=== PATIENT | female | born 1970 | race American Indian/Alaskan Native ===

== ENCOUNTER 2018-05-03 21:35 | Observation (INO) | payer BC ==
[2018-05-03 21:48] VITALS: BMI 43.0
[2018-05-03 22:14] LABS: BASO # 0.02 K/mm3 (0.0-2.0); BASO % 0.3 % (0.0-3.0); EOS # 0.1 (0.0-0.7); EOS % 1.8 % (1.5-5.0); GRAN # 4.01 (1.4-6.5); GRAN % 55.2 % (50.0-68.0); HEMOGLOBIN 12.6 g/dL (12.0-16.0); LYMPH # 2.6 (1.2-3.4); LYMPH % 36.4 % (22.0-35.0); MEAN CELL VOLUME 91.3 fl (80.0-105.0); MEAN CORPUSCULAR HEMOGLOBIN 29.6 pg (25.0-35.0); MEAN CORPUSCULAR HGB CONC 32.4 g/dl (31.0-37.0); MEAN PLATELET VOLUME 9.3 fl (7.0-11.0); MONO # 0.5 (0.1-0.6); MONO % 6.3 % (1.0-6.0); RBC 4.26 10^6/uL (3.5-6.1); WHITE BLOOD COUNT 7.3 10^3/uL (4.5-11.0)
[2018-05-03 22:35] LABS: TROPONIN I < 0.01 ng/mL
--- NOTE | 2018-05-03 22:36 | ED PDOC ---
Arrival/HPI - General Chief Complaint: Upper Extremity Problem/Injury Historian: Patient - History of Present Illness Narrative History of Present Illness (Text): 05/03/18 22:30 48 year old female, with no significant past medical history, presents to the emergency department with tingling on left arm and left face, for 1 week. Patient reports seeing a neurologist after her PCP referred her and was prescribed Gabapentin, with no relief of symptoms. Patient states no imaging was done and reports having a script from the neurologist for MRI. Patient denies any weakness, drooling, facial asymmetry, difficulty walking, shortness of breath, nausea, vomiting, abdominal pain, dizziness, vision changes, or any other complaints. PMD: Dr. Power Santoyo Time/Duration: 1 week Symptom Onset: Gradual Symptom Course: Unchanged Activities at Onset: Rest Past Medical History - Provider Review Nursing Documentation Reviewed: Yes - Travel History Have you recently traveled outside [place] w/in the past 3 mons?: No - Infectious Disease Hx of Infectious Diseases: None - Cardiac Hx Cardiac Disorders: No - Pulmonary Hx Asthma: Yes - Psychiatric Hx Substance Use: No - Surgical History Hx Section: Yes (x2) Hx Hysterectomy: Yes - Anesthesia Hx Anesthesia: No Family/Social History - Physician Review Nursing Documentation Reviewed: Yes Family/Social History: No Known Family HX Smoking Status: Never Smoked Hx Alcohol Use: No Hx Substance Use: No Allergies/Home Meds Allergies/Adverse Reactions: Allergies iodine Allergy (Verified 05/03/18 22:03) RASH Penicillins Allergy (Verified 05/03/18 22:03) RASH shellfish derived Allergy (Verified 05/03/18 22:03) RASH latex Allergy (Severe, Uncoded 05/04/18 12:04) ANAPHYLAXIS tuna Allergy (Uncoded 05/04/18 12:04) RASH Review of Systems - Physician Review All systems were reviewed & negative as marked: Yes - Review of Systems Constitutional: absent: Fevers Respiratory: absent: SOB Gastrointestinal: absent: Abdominal Pain, Nausea, Vomiting Neurological: Other (numbness and tingling in left arm, and left side of lip). absent: Dizziness, Focal Weakness, Gait Changes, Speech Changes, Facial Droop, Disequilibrium Physical Exam Vital Signs Reviewed: Yes Vital Signs Temp Pulse Resp BP Pulse Ox 05/03/18 21:51 98.1 F 77 18 144/85 97 Temperature: Afebrile Blood Pressure: Normal Pulse: Regular Respiratory Rate: Normal Appearance: Positive for: Well-Appearing, Non-Toxic, Comfortable Pain Distress: None Mental Status: Positive for: Alert and Oriented X 3 - Systems Exam Head: Present: Atraumatic, Normocephalic Pupils: Present: PERRL Extroacular Muscles: Present: EOMI Conjunctiva: Present: Normal Mouth: Present: Moist Mucous Membranes Neck: Present: Normal Range of Motion Respiratory/Chest: Present: Clear to Auscultation, Good Air Exchange. No: Respiratory Distress, Accessory Muscle Use Cardiovascular: Present: Regular Rate and Rhythm, Normal S1, S2. No: Murmurs Abdomen: No: Tenderness, Distention, Peritoneal Signs Back: Present: Normal Inspection Upper Extremity: Present: Normal Inspection. No: Cyanosis, Edema Lower Extremity: Present: Normal Inspection. No: Edema Neurological: Present: GCS=15, CN II-XII Intact, Speech Normal, Motor Func Grossly Intact (motor function 5/5 in all extremities), Gait Normal (able to walk in tandem), Other (Passed finger to nose test; no cerbral ataxia; no pronator drift; negative romberg) Skin: Present: Warm, Dry, Normal Color. No: Rashes Psychiatric: Present: Alert, Oriented x 3, Normal Insight, Normal Concentration Medical Decision Making ED Course and Treatment: 05/03/18 22:42 Impression: 48 year old female presents with left arm and some left facial numbness Differential Diagnoses Include But Are Not Limited To: --TIA/CVA Plan: -- CT Head -- Labs -- EKG -- Chest X-ray -- Urinalysis -- Reassess and disposition Prior Visits: No previous visits. Progress Notes: 05/03/18 23:22 Labs reviewed and unremarkable. No evidence of focal consolidation noted on CXR. Spoke to medical assistant secretary. Call placed to Dr. Padron(house staff) 05/03/18 23:[address] Padron who accepts patient onto his service. Patient off to CT scan. - Lab Interpretations Lab Results: 05/03/18 22:08 05/03/18 22:08 Lab Results 05/03/18 22:08: Sodium Pending, Potassium 3.9, Chloride Pending, Carbon Dioxide Pending, Anion Gap Pending, BUN Pending, Creatinine Pending, Est GFR ( Amer) Pending, Est GFR (Non-Af Amer) Pending, Random Glucose Pending, Calcium Pending, Magnesium Pending, Total Bilirubin Pending, AST Pending, ALT Pending, Alkaline Phosphatase Pending, Troponin I Pending, Total Protein Pending, Albumin Pending, Globulin Pending, Albumin/Globulin Ratio Pending 05/03/18 22:08: WBC 7.3, RBC 4.26, Hgb 12.6, Hct 38.9, MCV 91.3, MCH 29.6, MCHC 32.4, RDW 14.0, Plt Count 357, MPV 9.3, Gran % 55.2, Lymph % (Auto) 36.4 H, [place] % (Auto) 6.3 H, Eos % (Auto) 1.8, Baso % (Auto) 0.3, Gran # 4.01, Lymph # (Auto) 2.6, [place] # (Auto) 0.5, Eos # (Auto) 0.1, Baso # (Auto) 0.02 I have reviewed the lab results: Yes - RAD Interpretation Narrative RAD Interpretations (Text): 05/04/18 02:38 CT Head without Intravenous Contrast. CLINICAL HISTORY: Headache TECHNIQUE: Axial computed tomography images of the head/brain without intravenous contrast. 874.54 mGy-cm COMPARISON: None provided. FINDINGS: BRAIN No acute intraparenchymal hemorrhage. No mass lesion. No CT evidence for acute territorial infarct. No midline shift or extra-axial collections. VENTRICLES: No hydrocephalus. ORBITS: The orbits are unremarkable. SINUSES AND MASTOIDS: The paranasal sinuses and mastoid air cells are clear. BONES: No fracture. SOFT TISSUES: Unremarkable. IMPRESSION: No acute intracranial abnormality. Radiology Orders: 05/03/18 22:04 CHEST PORTABLE [RAD] Stat Veterinary Medicine Teacher: Radiologist - EKG Interpretation EKG Interpretation (Text): 05/04/18 01:09 EKG: Ordered, reviewed, and independently interpreted the EKG. Rate : 71 BPM Rhythm : NSR Interpretation : No ST-segment elevations, no T-wave inversions. Comparison : No previous EKG for comparison. Interpreted by ED Physician: Yes Type: 12 lead EKG Comparison: No previous EKG avail. - Scribe Statement The provider has reviewed the documentation as recorded by the Alvaro Lerma Provider Scribe Attestation: All medical record entries made by the Justinaibe were at my direction and personally dictated by me. I have reviewed the chart and agree that the record accurately reflects my personal performance of the history, physical exam, medical decision making, and the department course for this patient. I have also personally directed, reviewed, and agree with the discharge instructions and disposition. Disposition/Present on Arrival - Present on Arrival Any Indicators Present on Arrival: No History of DVT/PE: No History of Uncontrolled Diabetes: No Urinary Catheter: No History of Decub. Ulcer: No History Surgical Site Infection Following: None - Disposition Have Diagnosis and Disposition been Completed?: Yes Diagnosis: Arm paresthesia, left Disposition: HOSPITALIZED Disposition Time: 23:21 Patient Plan: Observation Condition: STABLE
[2018-05-03 22:49] LABS: ALB/GLOB RATIO 1.2 (1.1-1.8); ALT/SGPT 15 U/L (7-56); AST/SGOT 19 U/L (14-36); BLOOD UREA NITROGEN 12 mg/dL (7-21); CALCIUM 9.3 mg/dL (8.4-10.5); GFR NON-AFRICAN AMERICAN > 60
[2018-05-03 23:26] LABS: PH,URINE 8.5 (4.7-8.0); URINE BILIRUBIN NEGATIVE (NEGATIVE); URINE BLOOD NEGATIVE (NEGATIVE); URINE GLUCOSE (UA) NEGATIVE (NEGATIVE); URINE LEUKOCYTE ESTERASE NEGATIVE Leu/uL (NEGATIVE); URINE PROTEIN NEGATIVE mg/dL (<30 mg/dL); URINE UROBILINOGEN 0.2 E.U./dL (<1 E.U./dL)
[2018-05-03 23:28] LABS: URINE APPEARANCE CLEAR (CLEAR); URINE COLOR STRAW (YELLOW)
[2018-05-04] MEDS ORDERED: Albuterol-Ipratrop 3 mg / 0.5 (3 ml) UD IH PRN (01:36)
--- NOTE | 2018-05-04 03:49 | CP.PCM.HP ---
<JessicaAndrea - Last Filed: 05/04/18 03:52> History of Present Illness - History of Present Illness History of Present Illness: Andrea Lopez DO PGY1. H&P for Hospitalist Service C.C: right upper limb and facial numbness/tingling 48 y/o female with PMH of asthma presents to the ED with 5 days h/o left arm numbness/tingling with the entire face as well. Symptoms started suddenly without proceeding infection, unchanged in severity, intermittent, unrelated to positioning, no alleviating or worsening factors associated. Patient contacted her doctor via phone who prescribed Gabapentin for her that failed to relieve her symptoms. She denied focal neurological symptoms, visual changes, muscle weakness, facial droop, facial pain, rash. She denied any neurological disease, Chung's palsy, vertebral arthritis or radiculopathy symtoms in the past. Patient denied CP, SOB, palpitations, leg swelling, headache, rashes, blood per rectum, urinary symptoms, fever, chills 12 points ROS reviewed with pertinent positives as above PMH: asthma PSH: 2 C-sections, hysterectomy Meds: gabapentin ALL: PCN, iodine, shelfish Soc Hx:no alcohol, smoking, drug use Fam Hx: non contributory Present on Admission - Present on Admission Any Indicators Present on Admission: No Past Patient History - Infectious Disease Hx of Infectious Diseases: None - Past Social History Smoking Status: Never Smoked - CARDIAC Hx Cardiac Disorders: No - PULMONARY Hx Asthma: Yes - MUSCULOSKELETAL/RHEUMATOLOGICAL Hx Falls: No - PSYCHIATRIC Hx Substance Use: No - SURGICAL HISTORY Hx Section: Yes (x2) Hx Hysterectomy: Yes - ANESTHESIA Hx Anesthesia: No Meds Allergies/Adverse Reactions: Allergies Allergy/AdvReac Type Severity Reaction Status Date / Time iodine Allergy RASH Verified 05/03/18 22:03 Penicillins Allergy RASH Verified 05/03/18 22:03 shellfish derived Allergy RASH Verified 05/03/18 22:03 Physical Exam - Constitutional Appears: Well, No Acute Distress - Head Exam Head Exam: ATRAUMATIC, NORMAL INSPECTION, NORMOCEPHALIC - Eye Exam Eye Exam: EOMI, Normal appearance, PERRL Pupil Exam: NORMAL ACCOMODATION, PERRL - ENT Exam ENT Exam: Mucous Membranes Moist, Normal Exam - Neck Exam Neck exam: Positive for: Normal Inspection - Respiratory Exam Respiratory Exam: Clear to Auscultation Bilateral, NORMAL BREATHING PATTERN - Cardiovascular Exam Cardiovascular Exam: REGULAR RHYTHM - GI/Abdominal Exam GI & Abdominal Exam: Normal Bowel Sounds, Soft. absent: Tenderness - Back Exam Back exam: NORMAL INSPECTION. absent: muscle spasm, paraspinal tenderness, tenderness - Neurological Exam Neurological exam: Alert, CN II-XII Intact, Normal Gait, Oriented x3, Reflexes Normal - Expanded Neurological Exam Expanded Cranial nerves: EOM's Intact: Normal, Facial Palsey w/Forehead Movement: Normal, Facial Palsey w/o Forehead Movement: Normal, Facial Sensation: Normal, Tongue Deviation: Normal Ataxia: No Sensory exam: Lower Extremity Light Touch: Normal, Lower Extremity Temperature: Normal, Upper Extremity Light Touch: Normal, Upper Extremity Pin Prick: Normal, Upper Extremity Temperature: Normal Neuro motor strength exam: Left Upper Extremity: 5, Right Upper Extremity: 5, Left Lower Extremity: 5, Right Lower Extremity: 5 - Psychiatric Exam Psychiatric exam: Normal Affect, Normal Mood - Skin Skin Exam: Dry, Intact, Normal Color, Warm Results - Vital Signs Recent Vital Signs: Last Vital Signs Temp 98.1 F 05/03/18 21:51 Pulse 77 05/03/18 21:51 Resp 19 05/04/18 02:22 BP 144/85 05/03/18 21:51 Pulse Ox 97 05/03/18 21:51 - Labs Result Diagrams: 05/03/18 22:08 05/03/18 22:08 Labs: Laboratory Results - last 24 hr 05/03/18 05/03/18 05/03/18 22:08 22:08 22:08 WBC 7.3 RBC 4.26 Hgb 12.6 Hct 38.9 MCV 91.3 MCH 29.6 MCHC 32.4 RDW 14.0 Plt Count 357 MPV 9.3 Gran % 55.2 Lymph % (Auto) 36.4 H [place] % (Auto) 6.3 H Eos % (Auto) 1.8 Baso % (Auto) 0.3 Gran # 4.01 Lymph # (Auto) 2.6 [place] # (Auto) 0.5 Eos # (Auto) 0.1 Baso # (Auto) 0.02 Sodium 142 Potassium 3.9 Chloride 110 H Carbon Dioxide 24 Anion Gap 12 BUN 12 Creatinine 0.7 Est GFR ( Amer) > 60 Est GFR (Non-Af Amer) > 60 Random Glucose 116 H Calcium 9.3 Magnesium 2.0 Total Bilirubin 0.3 AST 19 ALT 15 Alkaline Phosphatase 90 Troponin I < 0.01 Total Protein 7.2 Albumin 4.0 Globulin 3.2 Albumin/Globulin Ratio 1.2 Triglycerides 209 H Cholesterol 200 LDL Cholesterol Direct 127 HDL Cholesterol 37 TSH 3rd Generation Urine Color Urine Appearance Urine pH Ur Specific [place] Urine Protein Urine Glucose (UA) Urine Ketones Urine Blood Urine Nitrate Urine Bilirubin Urine Urobilinogen Ur Leukocyte Esterase 05/03/18 05/03/18 22:08 23:20 WBC RBC Hgb Hct MCV MCH MCHC RDW Plt Count MPV Gran % Lymph % (Auto) [place] % (Auto) Eos % (Auto) Baso % (Auto) Gran # Lymph # (Auto) [place] # (Auto) Eos # (Auto) Baso # (Auto) Sodium Potassium Chloride Carbon Dioxide Anion Gap BUN Creatinine Est GFR ( Amer) Est GFR (Non-Af Amer) Random Glucose Calcium Magnesium Total Bilirubin AST ALT Alkaline Phosphatase Troponin I Total Protein Albumin Globulin Albumin/Globulin Ratio Triglycerides Cholesterol LDL Cholesterol Direct HDL Cholesterol TSH 3rd Generation 2.73 Urine Color Straw Urine Appearance Clear Urine pH 8.5 Ur Specific [place] 1.020 Urine Protein Negative Urine Glucose (UA) Negative Urine Ketones Negative Urine Blood Negative Urine Nitrate Negative Urine Bilirubin Negative Urine Urobilinogen 0.2 Ur Leukocyte Esterase Negative Assessment & Plan - Assessment and Plan (Free Text) Assessment: 48 y/o female with PMH of asthma presents to the ED with 5 days h/o left arm numbness/tingling with the entire face. Labs are normal, CT head, cervical/thoracic spine ordered. Patient is admitted to med/surg for observation Plan: Left upper extremity and facial numbness/tingling: -AAOx3, No focal neurologic signs on exam -CT head; read pending -CT cervical/thoracic spine ordered -B12, folate, TSH ordered -neuro check -fall, seizure precaution -neurology consulted, Dr Loco H/O asthma: -intermittent, no active symptoms -O2 supp prn -doneb prn -maintain O2 sat >90% Morbid obesity: -patient counseling for weight reduction -HGB A1C ordered -lipid panel ordered Prophylaxis: -GI ppx: protonix -DVT ppx: SCD -Heart healthy diet Dispo: Patient is admitted to med/surg for observation Case reviewed and palndiscussed with Dr Vito Lopez, DO, PGY1 <Ehsan Padron - Last Filed: 05/04/18 05:57> Results - Vital Signs Recent Vital Signs: Last Vital Signs Temp 98.1 F 05/03/18 21:51 Pulse 77 05/03/18 21:51 Resp 19 05/04/18 02:22 BP 144/85 05/03/18 21:51 Pulse Ox 97 05/03/18 21:51 - Labs Result Diagrams: 05/03/18 22:08 05/04/18 04:25 Labs: Laboratory Results - last 24 hr 05/03/18 05/03/18 05/03/18 22:08 22:08 22:08 WBC 7.3 RBC 4.26 Hgb 12.6 Hct 38.9 MCV 91.3 MCH 29.6 MCHC 32.4 RDW 14.0 Plt Count 357 MPV 9.3 Gran % 55.2 Lymph % (Auto) 36.4 H [place] % (Auto) 6.3 H Eos % (Auto) 1.8 Baso % (Auto) 0.3 Gran # 4.01 Lymph # (Auto) 2.6 [place] # (Auto) 0.5 Eos # (Auto) 0.1 Baso # (Auto) 0.02 Sodium 142 Potassium 3.9 Chloride 110 H Carbon Dioxide 24 Anion Gap 12 BUN 12 Creatinine 0.7 Est GFR ( Amer) > 60 Est GFR (Non-Af Amer) > 60 Random Glucose 116 H Calcium 9.3 Phosphorus Magnesium 2.0 Total Bilirubin 0.3 AST 19 ALT 15 Alkaline Phosphatase 90 Troponin I < 0.01 Total Protein 7.2 Albumin 4.0 Globulin 3.2 Albumin/Globulin Ratio 1.2 Triglycerides 209 H Cholesterol 200 LDL Cholesterol Direct 127 HDL Cholesterol 37 TSH 3rd Generation Urine Color Urine Appearance Urine pH Ur Specific [place] Urine Protein Urine Glucose (UA) Urine Ketones Urine Blood Urine Nitrate Urine Bilirubin Urine Urobilinogen Ur Leukocyte Esterase 05/03/18 05/03/18 05/04/18 22:08 23:20 04:25 WBC RBC Hgb Hct MCV MCH MCHC RDW Plt Count MPV Gran % Lymph % (Auto) [place] % (Auto) Eos % (Auto) Baso % (Auto) Gran # Lymph # (Auto) [place] # (Auto) Eos # (Auto) Baso # (Auto) Sodium 139 Potassium 4.0 Chloride 110 H Carbon Dioxide 21 Anion Gap 12 BUN 13 Creatinine 0.7 Est GFR ( Amer) > 60 Est GFR (Non-Af Amer) > 60 Random Glucose 101 Calcium 8.9 Phosphorus 4.1 Magnesium 2.0 Total Bilirubin 0.3 AST 15 ALT 15 Alkaline Phosphatase 89 Troponin I < 0.01 Total Protein 7.0 Albumin 3.8 Globulin 3.1 Albumin/Globulin Ratio 1.2 Triglycerides Cholesterol LDL Cholesterol Direct HDL Cholesterol TSH 3rd Generation 2.73 Urine Color Straw Urine Appearance Clear Urine pH 8.5 Ur Specific [place] 1.020 Urine Protein Negative Urine Glucose (UA) Negative Urine Ketones Negative Urine Blood Negative Urine Nitrate Negative Urine Bilirubin Negative Urine Urobilinogen 0.2 Ur Leukocyte Esterase Negative Attending/Attestation - Attestation I have personally seen and examined this patient.: Yes I have fully participated in the care of the patient.: Yes I have reviewed all pertinent clinical information: Yes Notes (Text): 05/04/18 05:51 Patient was seen with resident physician when she was in CODE room in the ER. 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
[2018-05-04 05:04] LABS: TROPONIN I < 0.01 ng/mL
[2018-05-04 05:18] LABS: ALB/GLOB RATIO 1.2 (1.1-1.8); ALBUMIN 3.8 g/dL (3.0-4.8); ALT/SGPT 15 U/L (7-56); AST/SGOT 15 U/L (14-36); BLOOD UREA NITROGEN 13 mg/dL (7-21); CALCIUM 8.9 mg/dL (8.4-10.5); GFR NON-AFRICAN AMERICAN > 60
[2018-05-04] MEDS: Pantoprazole 40 mg EC Tab PO SCH (06:21)
--- NOTE | 2018-05-04 07:02 | CT ---
Date of service: 05/03/2018 PROCEDURE: CT HEAD WITHOUT CONTRAST. HISTORY: headache COMPARISON: None available. TECHNIQUE: Axial computed tomography images were obtained through the head/brain without intravenous contrast. Radiation dose: Total exam DLP = 874.54 mGy-cm. This CT exam was performed using one or more of the following dose reduction techniques: Automated exposure control, adjustment of the mA and/or kV according to patient size, and/or use of iterative reconstruction technique. FINDINGS: HEMORRHAGE: No intracranial hemorrhage. BRAIN: No mass effect or edema. No atrophy or chronic microvascular ischemic changes. VENTRICLES: Unremarkable. No hydrocephalus. CALVARIUM: Unremarkable. PARANASAL SINUSES: Unremarkable as visualized. No significant inflammatory changes. MASTOID AIR CELLS: Unremarkable as visualized. No inflammatory changes. OTHER FINDINGS: None. IMPRESSION: No evidence of acute intracranial hemorrhage intracranial collection mass effect or midline shift. Preliminary report was submitted by [facility] Radiology contains concordant findings.
--- NOTE | 2018-05-04 09:10 | RAD ---
Date of service: 05/03/2018 HISTORY: general screen COMPARISON: No prior. FINDINGS: LUNGS: No active pulmonary disease. PLEURA: No significant pleural effusion identified, no pneumothorax apparent. CARDIOVASCULAR: No aortic atherosclerotic calcification present. Normal cardiac size. No pulmonary vascular congestion. OSSEOUS STRUCTURES: No significant abnormalities. VISUALIZED UPPER ABDOMEN: Normal. OTHER FINDINGS: None. IMPRESSION: No active disease.
--- NOTE | 2018-05-04 09:23 | CP.PCM.CON ---
<Driss Duarte - Last Filed: 05/04/18 15:38> History of Present Illness - History of Present Illness History of Present Illness: Neurology Consult note for Dr. 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 states she noticed this sensation when she woke up Monday morning. Due to concern she was having a stroke that day, she went to her PMD where she was prescribed gabapentin 100 mg qD. Patient states this sensation waxed and waned and by Monday she was concerned so she went to her Neurologist Dr. Naqvi for further evaluation. Patient was given a script for brain MRI however patient states due to insurance issues and authorization she was unable to get the MRI. With more concerning thoughts of stroke, patient became nervous and anxious and states this exacerbated the tingling sensation she was having. As per patient the numbness and tingling radiates up and down her left arm, face and across her back on the scapular region. Patient states that overnight she noticed this sensation also traveling down her left leg. She denies previous sensation such as this in the past, shortness of breath, fevers, chills, nausea, vomiting, diarrhea, abdominal pain, vision changes, chest pain, shortness of breath. PMD: Dr. Crockett Neurologist Dr. Naqvi PMHx: Chronic migraines, Coma after where she came into contact with penicillin and latex , Asthma (rarely uses inhaler) Medications: Topomax, Gabapentin Allergies: iodine, penicillins, shellfish, latex (carries epi-pen) Social history: denies tobacco, alcohol, illicit drug use Family history: DM, HTN, breast ca Review of Systems - Constitutional Constitutional: absent: Chills - EENT Eyes: absent: Change in Vision, Diplopia - Cardiovascular Cardiovascular: absent: Chest Pain, Dyspnea - Respiratory Respiratory: absent: Cough, Dyspnea - Gastrointestinal Gastrointestinal: absent: Abdominal Pain - Genitourinary Genitourinary: absent: Dysuria - Musculoskeletal Musculoskeletal: absent: Back Pain - Neurological Neurological: Paresthesias (left sided). absent: Confusion, Dizziness, Focal Weakness, Frequent Falls, Lack of Coordination, Loss of Vision - Psychiatric Psychiatric: absent: Anxiety Past Patient History - Infectious Disease Hx of Infectious Diseases: None - Past Social History Smoking Status: Never Smoked - CARDIAC Hx Cardiac Disorders: No - PULMONARY Hx Asthma: Yes - MUSCULOSKELETAL/RHEUMATOLOGICAL Hx Falls: No - PSYCHIATRIC Hx Substance Use: No - SURGICAL HISTORY Hx Section: Yes (x2) Hx Hysterectomy: Yes - ANESTHESIA Hx Anesthesia: No Meds Allergies/Adverse Reactions: Allergies Allergy/AdvReac Type Severity Reaction Status Date / Time iodine Allergy RASH Verified 05/03/18 22:03 Penicillins Allergy RASH Verified 05/03/18 22:03 shellfish derived Allergy RASH Verified 05/03/18 22:03 latex Allergy Severe ANAPHYLAXIS Uncoded 05/04/18 12:04 tuna Allergy RASH Uncoded 05/04/18 12:04 - Medications Medications: Current Medications Albuterol/Ipratropium (Duoneb 3 Mg/0.5 Mg (3 Ml) Ud) 3 ml IH Q2H PRN PRN Reason: Shortness of Breath Gabapentin (Neurontin) 300 mg PO STAT JEAN PAUL; Protocol Pantoprazole Sodium (Protonix Ec Tab) 40 mg PO 0600 [facility] Last Admin: 05/04/18 06:21 Dose: 40 mg Physical Exam - Head Exam Head Exam: ATRAUMATIC, NORMAL INSPECTION, NORMOCEPHALIC - Eye Exam Eye Exam: EOMI, Normal appearance - ENT Exam ENT Exam: Mucous Membranes Moist, Normal Exam - Neck Exam Neck exam: Positive for: Normal Inspection - Respiratory Exam Respiratory Exam: Clear to Auscultation Bilateral, NORMAL BREATHING PATTERN - Cardiovascular Exam Cardiovascular Exam: REGULAR RHYTHM, +S1, +S2 - GI/Abdominal Exam GI & Abdominal Exam: Normal Bowel Sounds, Soft - Extremities Exam Extremities exam: Positive for: normal inspection - Back Exam Back exam: NORMAL INSPECTION - Neurological Exam Neurological exam: Alert, CN II-XII Intact, Oriented x3 - Psychiatric Exam Psychiatric exam: Normal Affect, Normal Mood - Skin Skin Exam: Normal Color, Warm Results - Vital Signs Recent Vital Signs: Last Vital Signs Temp 98 F 05/04/18 07:45 Pulse 69 05/04/18 07:45 Resp 20 05/04/18 07:45 BP 119/76 05/04/18 07:45 Pulse Ox 98 05/04/18 07:45 - Labs Result Diagrams: 05/03/18 22:08 05/04/18 04:25 Labs: Laboratory Results - last 24 hr 05/03/18 05/03/18 05/03/18 22:08 22:08 22:08 WBC 7.3 RBC 4.26 Hgb 12.6 Hct 38.9 MCV 91.3 MCH 29.6 MCHC 32.4 RDW 14.0 Plt Count 357 MPV 9.3 Gran % 55.2 Lymph % (Auto) 36.4 H Otero % (Auto) 6.3 H Eos % (Auto) 1.8 Baso % (Auto) 0.3 Gran # 4.01 Lymph # (Auto) 2.6 Otero # (Auto) 0.5 Eos # (Auto) 0.1 Baso # (Auto) 0.02 Sodium 142 Potassium 3.9 Chloride 110 H Carbon Dioxide 24 Anion Gap 12 BUN 12 Creatinine 0.7 Est GFR ( Amer) > 60 Est GFR (Non-Af Amer) > 60 Random Glucose 116 H Calcium 9.3 Phosphorus Magnesium 2.0 Total Bilirubin 0.3 AST 19 ALT 15 Alkaline Phosphatase 90 Troponin I < 0.01 Total Protein 7.2 Albumin 4.0 Globulin 3.2 Albumin/Globulin Ratio 1.2 Triglycerides 209 H Cholesterol 200 LDL Cholesterol Direct 127 HDL Cholesterol 37 TSH 3rd Generation Urine Color Urine Appearance Urine pH Ur Specific [place] Urine Protein Urine Glucose (UA) Urine Ketones Urine Blood Urine Nitrate Urine Bilirubin Urine Urobilinogen Ur Leukocyte Esterase 05/03/18 05/03/18 05/04/18 22:08 23:20 04:25 WBC RBC Hgb Hct MCV MCH MCHC RDW Plt Count MPV Gran % Lymph % (Auto) Oter[place] % (Auto) Eos % (Auto) Baso % (Auto) Gran # Lymph # (Auto) O[place] # (Auto) Eos # (Auto) Baso # (Auto) Sodium 139 Potassium 4.0 Chloride 110 H Carbon Dioxide 21 Anion Gap 12 BUN 13 Creatinine 0.7 Est GFR ( Amer) > 60 Est GFR (Non-Af Amer) > 60 Random Glucose 101 Calcium 8.9 Phosphorus 4.1 Magnesium 2.0 Total Bilirubin 0.3 AST 15 ALT 15 Alkaline Phosphatase 89 Troponin I < 0.01 Total Protein 7.0 Albumin 3.8 Globulin 3.1 Albumin/Globulin Ratio 1.2 Triglycerides Cholesterol LDL Cholesterol Direct HDL Cholesterol TSH 3rd Generation 2.73 Urine Color Straw Urine Appearance Clear Urine pH 8.5 Ur Specific [place] 1.020 Urine Protein Negative Urine Glucose (UA) Negative Urine Ketones Negative Urine Blood Negative Urine Nitrate Negative Urine Bilirubin Negative Urine Urobilinogen 0.2 Ur Leukocyte Esterase Negative Assessment & Plan - Assessment and Plan (Free Text) Assessment: Patient is a 48 female with history of chronic migraine, asthma, 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 Plan: Left sided paresthesia -MRI Brain w/o contrast -CT head negative -Continue with Gabapentin qHS -Pt is on topomax for migraines (topomax can also cause parethesias) <Power Loco - Last Filed: 05/04/18 16:20> Meds - Medications Medications: Current Medications Albuterol/Ipratropium (Duoneb 3 Mg/0.5 Mg (3 Ml) Ud) 3 ml IH Q2H PRN PRN Reason: Shortness of Breath Gabapentin (Neurontin) 300 mg PO DAILY JEAN PAUL; Protocol Pantoprazole Sodium (Protonix Ec Tab) 40 mg PO 0600 JEAN PAUL Last Admin: 05/04/18 06:21 Dose: 40 mg Topiramate (Topamax) 100 mg PO HS JEAN PAUL; Protocol Results - Vital Signs Recent Vital Signs: Last Vital Signs Temp 98 F 05/04/18 07:45 Pulse 69 05/04/18 07:45 Resp 20 05/04/18 07:45 BP 119/76 05/04/18 07:45 Pulse Ox 98 05/04/18 07:45 - Labs Result Diagrams: 05/03/18 22:08 05/04/18 04:25 Labs: Laboratory Results - last 24 hr 05/03/18 05/03/18 05/03/18 22:08 22:08 22:08 WBC 7.3 RBC 4.26 Hgb 12.6 Hct 38.9 MCV 91.3 MCH 29.6 MCHC 32.4 RDW 14.0 Plt Count 357 MPV 9.3 Gran % 55.2 Lymph % (Auto) 36.4 H Otero % (Auto) 6.3 H Eos % (Auto) 1.8 Baso % (Auto) 0.3 Gran # 4.01 Lymph # (Auto) 2.6 Otero # (Auto) 0.5 Eos # (Auto) 0.1 Baso # (Auto) 0.02 Sodium 142 Potassium 3.9 Chloride 110 H Carbon Dioxide 24 Anion Gap 12 BUN 12 Creatinine 0.7 Est GFR ( Amer) > 60 Est GFR (Non-Af Amer) > 60 Random Glucose 116 H Hemoglobin A1c Calcium 9.3 Phosphorus Magnesium 2.0 Total Bilirubin 0.3 AST 19 ALT 15 Alkaline Phosphatase 90 Troponin I < 0.01 Total Protein 7.2 Albumin 4.0 Globulin 3.2 Albumin/Globulin Ratio 1.2 Triglycerides 209 H Cholesterol 200 LDL Cholesterol Direct 127 HDL Cholesterol 37 Vitamin B12 339 Folate 9.1 TSH 3rd Generation Urine Color Urine Appearance Urine pH Ur Specific [place] Urine Protein Urine Glucose (UA) Urine Ketones Urine Blood Urine Nitrate Urine Bilirubin Urine Urobilinogen Ur Leukocyte Esterase 05/03/18 05/03/18 05/03/18 22:08 22:08 23:20 WBC RBC Hgb Hct MCV MCH MCHC RDW Plt Count MPV Gran % Lymph % (Auto) Otero % (Auto) Eos % (Auto) Baso % (Auto) Gran # Lymph # (Auto) Otero # (Auto) Eos # (Auto) Baso # (Auto) Sodium Potassium Chloride Carbon Dioxide Anion Gap BUN Creatinine Est GFR ( Amer) Est GFR (Non-Af Amer) Random Glucose Hemoglobin A1c 5.3 Calcium Phosphorus Magnesium Total Bilirubin AST ALT Alkaline Phosphatase Troponin I Total Protein Albumin Globulin Albumin/Globulin Ratio Triglycerides Cholesterol LDL Cholesterol Direct HDL Cholesterol Vitamin B12 Folate TSH 3rd Generation 2.73 Urine Color Straw Urine Appearance Clear Urine pH 8.5 Ur Specific [place] 1.020 Urine Protein Negative Urine Glucose (UA) Negative Urine Ketones Negative Urine Blood Negative Urine Nitrate Negative Urine Bilirubin Negative Urine Urobilinogen 0.2 Ur Leukocyte Esterase Negative 05/04/18 04:25 WBC RBC Hgb Hct MCV MCH MCHC RDW Plt Count MPV Gran % Lymph % (Auto) Oter[place] % (Auto) Eos % (Auto) Baso % (Auto) Gran # Lymph # (Auto) Otero # (Auto) Eos # (Auto) Baso # (Auto) Sodium 139 Potassium 4.0 Chloride 110 H Carbon Dioxide 21 Anion Gap 12 BUN 13 Creatinine 0.7 Est GFR ( Amer) > 60 Est GFR (Non-Af Amer) > 60 Random Glucose 101 Hemoglobin A1c Calcium 8.9 Phosphorus 4.1 Magnesium 2.0 Total Bilirubin 0.3 AST 15 ALT 15 Alkaline Phosphatase 89 Troponin I < 0.01 Total Protein 7.0 Albumin 3.8 Globulin 3.1 Albumin/Globulin Ratio 1.2 Triglycerides Cholesterol LDL Cholesterol Direct HDL Cholesterol Vitamin B12 Folate TSH 3rd Generation Urine Color Urine Appearance Urine pH Ur Specific [place] Urine Protein Urine Glucose (UA) Urine Ketones Urine Blood Urine Nitrate Urine Bilirubin Urine Urobilinogen Ur Leukocyte Esterase Attending/Attestation - Attestation I have personally seen and examined this patient.: Yes I have fully participated in the care of the patient.: Yes I have reviewed all pertinent clinical information: Yes Notes (Text): 05/04/18 16:19 I agree with the assessment and plan. Will continue current medication and follow up on MRI brain.
--- NOTE | 2018-05-04 09:25 | CARD ---
APPROVED REPORT Date of service: 05/03/2018 EKG Measurement Heart [id number] <Conclusion> Normal sinus rhythm Normal ECG
--- NOTE | 2018-05-04 09:38 | CARD ---
APPROVED REPORT Date of service: 05/04/2018 EKG Measurement Heart [id number] <Conclusion> Normal sinus rhythm Normal ECG No change
--- NOTE | 2018-05-04 11:47 | CT ---
Date of service: 05/04/2018 PROCEDURE: CT Cervical Spine without contrast HISTORY: radiculopathy COMPARISON: None available. TECHNIQUE: Axial computed tomography images were obtained of the cervical spine without the use of intravenous contrast. Coronal and sagittal reformatted images were created and reviewed. Radiation dose: Total exam DLP = 544.99 mGy-cm. This CT exam was performed using one or more of the following dose reduction techniques: Automated exposure control, adjustment of the mA and/or kV according to patient size, and/or use of iterative reconstruction technique. FINDINGS: VERTEBRAE: No fracture. Normal alignment. No destructive bony lesion. Straightening of the cervical spine is noted likely due to muscle spasm. DISCS/SPINAL CANAL/NEURAL FORAMINA: Mild spondylosis noted in the mid cervical spine. There is small posterior osteophyte bulging disc at C6-C7 associated with mild spinal stenosis. Discs heights are grossly preserved. PARASPINAL SOFT TISSUES: Unremarkable. OTHER FINDINGS: None. IMPRESSION: Straightening of the cervical spine likely due to muscle spasm. Small posterior osteophyte bulging disc at C6-C7 associated with mild spinal stenosis.
--- NOTE | 2018-05-04 12:23 | MRI ---
Date of service: 05/04/2018 PROCEDURE: MRI BRAIN WITHOUT CONTRAST HISTORY: left sided paresthesias COMPARISON: None available. TECHNIQUE: Multiplanar, multisequence MR images of the brain were obtained without intravenous contrast enhancement. FINDINGS: HEMORRHAGE: None DWI: No evidence of an acute or early subacute infarction. BRAIN PARENCHYMA: No mass effect or edema. No atrophy or chronic microvascular ischemic changes. VENTRICLES: Unremarkable. No hydrocephalus. CRANIUM: Unremarkable. ORBITS: Grossly unremarkable. PARANASAL SINUSES/MASTOIDS: Clear VASCULAR SYSTEM: Skull base flow voids intact. OTHER FINDINGS: None. IMPRESSION: Unremarkable non contrast enhanced MRI of the brain.
--- NOTE | 2018-05-04 13:13 | MRI ---
Date of service: 05/04/2018 PROCEDURE: Magnetic Resonance Angiography Brain HISTORY: paresthesias COMPARISON: None available. TECHNIQUE: 3D time of flight MR angiography of the intracranial arteries was performed. Rotating maximum intensity projection images were generated. FINDINGS: INTERNAL CAROTID ARTERIES: Unremarkable. The skull base, petrous, cavernous and supraclinoid segments are bilaterally widely patient. ANTERIOR CEREBRAL ARTERIES: Unremarkable. A1 and A2 segments are widely patent. Smaller distal branches unremarkable, as visualized. MIDDLE CEREBRAL ARTERIES: Unremarkable. M1 and M2 segments are widely patent. Perisylvian branches grossly symmetric. POSTERIOR CIRCULATION: Basilar Artery: Unremarkable. Distal Vertebral Arteries: Unremarkable. Posterior Cerebral Arteries: Unremarkable. Posterior Inferior Cerebellar Arteries: Unremarkable. ANEURYSM/ VASCULAR MALFORMATIONS: None. OTHER FINDINGS: None. IMPRESSION: Unremarkable MR angiography of the brain.
--- NOTE | 2018-05-04 13:15 | MRI ---
Date of service: 05/04/2018 PROCEDURE: MR Angiography of the neck without contrast HISTORY: paresthesias COMPARISON: None available. TECHNIQUE: 3D [id number] angiography of the neck was performed. Rotating maximum intensity projection images of the cervical carotid and vertebral arteries were generated. The origins of the common carotid arteries were not visualized, which is a limitation inherent to the non-contrast time of flight technique. FINDINGS: RIGHT CAROTID ARTERIES: Common Carotid Artery: Normal. Carotid Bifurcation: Normal. Internal Carotid Artery:Normal. External Carotid Artery (proximal branches): Normal. LEFT CAROTID ARTERIES: Common Carotid Artery: Normal. Carotid Bifurcation: Normal. Internal Carotid Artery:Normal. External Carotid Artery (proximal branches): Normal. VERTEBRAL ARTERIES: Right Vertebral Artery: Normal. Left Vertebral Artery: Normal. OTHER FINDINGS: None. IMPRESSION: Normal MR Angiography of the neck.
--- NOTE | 2018-05-04 13:20 | CT ---
Date of service: 05/04/2018 PROCEDURE: CT Thoracic Spine without contrast HISTORY: radiculopathy COMPARISON: None available. TECHNIQUE: Axial computed tomography images were obtained of the thoracic spine without intravenous contrast. Coronal and sagittal reformatted images were created and reviewed. Radiation dose: Total exam DLP = 1075.37 mGy-cm. This CT exam was performed using one or more of the following dose reduction techniques: Automated exposure control, adjustment of the mA and/or kV according to patient size, and/or use of iterative reconstruction technique. FINDINGS: VERTEBRAE: Unremarkable. No fracture. Normal alignment. DISCS/SPINAL CANAL/NEURAL FORAMINA: Within the limits of the CT technique, no disc herniation seen. No central canal or neural foraminal stenosis.. PARASPINAL SOFT TISSUES: Unremarkable. OTHER FINDINGS: Unremarkable. IMPRESSION: Unremarkable CT of the thoracic spine.
[2018-05-04 13:21] LABS: FOLATE 9.1 ng/mL
[2018-05-05] MEDS: Pantoprazole 40 mg EC Tab PO SCH (06:17)
[2018-05-05 06:43] VITALS: BP 123/70; PULSE 70; RESP 20; TEMP 98.1; O2SAT 95
[2018-05-05 07:07] LABS: BASO # 0.02 K/mm3 (0.0-2.0); BASO % 0.3 % (0.0-3.0); EOS # 0.2 (0.0-0.7); EOS % 2.6 % (1.5-5.0); GRAN # 3.58 (1.4-6.5); GRAN % 57.3 % (50.0-68.0); MEAN CELL VOLUME 91.6 fl (80.0-105.0); MEAN CORPUSCULAR HEMOGLOBIN 29.5 pg (25.0-35.0); MEAN CORPUSCULAR HGB CONC 32.2 g/dl (31.0-37.0); MEAN PLATELET VOLUME 10.4 fl (7.0-11.0); MONO # 0.5 (0.1-0.6); MONO % 7.8 % (1.0-6.0); RBC 4.41 10^6/uL (3.5-6.1); RED CELL DISTRIBUTION WIDTH 14.1 % (11.5-14.5); WHITE BLOOD COUNT 6.3 10^3/uL (4.5-11.0)
[2018-05-05 07:20] LABS: ALB/GLOB RATIO 1.2 (1.1-1.8); ALT/SGPT 16 U/L (7-56); AST/SGOT 18 U/L (14-36); BLOOD UREA NITROGEN 16 mg/dL (7-21); CALCIUM 8.8 mg/dL (8.4-10.5); GFR NON-AFRICAN AMERICAN > 60
--- NOTE | 2018-05-05 11:41 | CP.PCM.PCO ---
Physician Communication Note - Physician Communication Note Physician Communication Note: The patient did not have a TIA based on history. She has paresthesias.
--- NOTE | 2018-05-05 12:25 | CP.PCM.DIS ---
Provider - Provider Date of Admission: 05/03/18 23:25 Attending physician: Veronique Small Primary care physician: Natanael Steve Consults: 05/04/18 06:00 Physician Consult ROUTINE AM Comment: Consulting Provider: Power Loco Consulting Physician: Power Loco Reason for Consult: TIA/paresthesias Time Spent in preparation of Discharge (in minutes): 45 Diagnosis - Discharge Diagnosis (1) Migraine Status: Acute (2) Arm paresthesia, left Status: Acute Hospital Course - Lab Results Lab Results: Most Recent Lab Values WBC 6.3 10^3/uL (4.5-11.0) 05/05/18 06:00 RBC 4.41 10^6/uL (3.5-6.1) 05/05/18 06:00 Hgb 13.0 g/dL (12.0-16.0) 05/05/18 06:00 Hct 40.4 % (36.0-48.0) 05/05/18 06:00 MCV 91.6 fl (80.0-105.0) 05/05/18 06:00 MCH 29.5 pg (25.0-35.0) 05/05/18 06:00 MCHC 32.2 g/dl (31.0-37.0) 05/05/18 06:00 RDW 14.1 % (11.5-14.5) 05/05/18 06:00 Plt Count 319 10^3/uL (120.0-450.0) 05/05/18 06:00 MPV 10.4 fl (7.0-11.0) 05/05/18 06:00 Gran % 57.3 % (50.0-68.0) 05/05/18 06:00 Lymph % (Auto) 32.0 % (22.0-35.0) 05/05/18 06:00 Ransom % (Auto) 7.8 % (1.0-6.0) H 05/05/18 06:00 Eos % (Auto) 2.6 % (1.5-5.0) 05/05/18 06:00 Baso % (Auto) 0.3 % (0.0-3.0) 05/05/18 06:00 Gran # 3.58 (1.4-6.5) 05/05/18 06:00 Lymph # (Auto) 2.0 (1.2-3.4) 05/05/18 06:00 Ransom # (Auto) 0.5 (0.1-0.6) 05/05/18 06:00 Eos # (Auto) 0.2 (0.0-0.7) 05/05/18 06:00 Baso # (Auto) 0.02 K/mm3 (0.0-2.0) 05/05/18 06:00 Sodium 140 mmol/L (132-148) 05/05/18 06:00 Potassium 4.4 mmol/L (3.6-5.0) 05/05/18 06:00 Chloride 111 mmol/L (98-107) H 05/05/18 06:00 Carbon Dioxide 20 mmol/L (21-33) L 05/05/18 06:00 Anion Gap 13 (10-20) 05/05/18 06:00 BUN 16 mg/dL (7-21) 05/05/18 06:00 Creatinine 0.7 mg/dl (0.7-1.2) 05/05/18 06:00 Est GFR ( Amer) > 60 05/05/18 06:00 Est GFR (Non-Af Amer) > 60 05/05/18 06:00 Random Glucose 95 mg/dL (70-110) 05/05/18 06:00 Hemoglobin A1c 5.3 % (4.2-6.5) 05/03/18 22:08 Calcium 8.8 mg/dL (8.4-10.5) 05/05/18 06:00 Phosphorus 4.1 mg/dL (2.5-4.5) 05/04/18 04:25 Magnesium 2.0 mg/dL (1.7-2.2) 05/04/18 04:25 Total Bilirubin 0.4 mg/dL (0.2-1.3) 05/05/18 06:00 AST 18 U/L (14-36) 05/05/18 06:00 ALT 16 U/L (7-56) 05/05/18 06:00 Alkaline Phosphatase 93 U/L (38-126) 05/05/18 06:00 Troponin I < 0.01 ng/mL 05/04/18 04:25 Total Protein 7.4 g/dL (5.8-8.3) 05/05/18 06:00 Albumin 4.0 g/dL (3.0-4.8) 05/05/18 06:00 Globulin 3.4 gm/dL 05/05/18 06:00 Albumin/Globulin Ratio 1.2 (1.1-1.8) 05/05/18 06:00 Triglycerides 209 mg/dL (35-160) H 05/03/18 22:08 Cholesterol 200 mg/dL (130-200) 05/03/18 22:08 LDL Cholesterol Direct 127 mg/dL (0-129) 05/03/18 22:08 HDL Cholesterol 37 mg/dL (29-60) 05/03/18 22:08 Vitamin B12 339 pg/mL (239-931) 05/03/18 22:08 Folate 9.1 ng/mL 05/03/18 22:08 TSH 3rd Generation 2.73 mIU/mL (0.46-4.68) 05/03/18 22:08 Urine Color Straw (YELLOW) 05/03/18 23:20 Urine Appearance Clear (CLEAR) 05/03/18 23:20 Urine pH 8.5 (4.7-8.0) 05/03/18 23:20 Ur Specific [place] 1.020 (1.005-1.035) 05/03/18 23:20 Urine Protein Negative mg/dL (<30 mg/dL) 05/03/18 23:20 Urine Glucose (UA) Negative mg/dL (NEGATIVE) 05/03/18 23:20 Urine Ketones Negative mg/dL (NEGATIVE) 05/03/18 23:20 Urine Blood Negative (NEGATIVE) 05/03/18 23:20 Urine Nitrate Negative (NEGATIVE) 05/03/18 23:20 Urine Bilirubin Negative (NEGATIVE) 05/03/18 23:20 Urine Urobilinogen 0.2 E.U./dL (<1 E.U./dL) 05/03/18 23:20 Ur Leukocyte Esterase Negative Rubens/uL (NEGATIVE) 05/03/18 23:20 - Hospital Course Hospital Course: Jose Acevedo DO PGY 1 Internal Medicine [employer] - Hospital DC Summary: Note this is a brief synopsis of hospital course; for further detail please refer to EMR 48 y/o female with PMH of asthma presents to the ED with 5 days h/o left arm numbness/tingling with the entire face as well. Upon presentation patient underwent CT head to r/o stroke; no findings of ischemia or intracrania hemorrhage were seen. Further workup involved neurology consult as well as further imaging. CT of the cervical spine showed osteophyte bulging of c6/7 as well as neck muscle spasm. CT of C-Spine showed was read as unremarkable. Neurology was consulted who recommended increasing gabapentin; starting aspirin as well as MRI of the brain as well as a head/neck MRA. All imaging were re turned as normal. Etiology of spasm is unknown at this time; however TIA and Stroke are unlikely at si time. Furthermore patient was noted to be on topamax for migraine, medication induced parasthesia vs cervical msucle spasm can be likely diagnoses. Prior to discharge patient was seen and examined; she reported muscle spasms recurred overnight however w/ less severity. Patient is comfortable in bed talking full sentences w/ no slurring; c/o diplopia ; or focal weakness. She is tolerating diet well no complaints of chest pain, sob, abd pian, n/v/d/c. It was explained to the patient that further workup would require outpatient follow up and patient agreed to see her own neurologist. It was expressed very clearly to the patient that neurology believed she was not suffering a tia, nor had she suffered a tia. - Date & Time of H&P Date of H&P: 05/05/18 Time of H&P: 18:52 Discharge Exam - Head Exam Head Exam: ATRAUMATIC, NORMAL INSPECTION, NORMOCEPHALIC - Eye Exam Eye Exam: EOMI, Normal appearance, PERRL - Respiratory Exam Respiratory Exam: Clear to PA & Lateral, NORMAL BREATHING PATTERN, UNREMARKABLE - GI/Abdominal Exam GI & Abdominal Exam: Normal Bowel Sounds, Unremarkable - Neurological Exam Neurological exam: Alert, CN II-XII Intact, Normal Gait, Oriented x3 - Psychiatric Exam Psychiatric exam: Normal Affect, Normal Mood - Skin Skin Exam: Dry, Intact, Normal Color, Warm Discharge Plan - Discharge Medications Prescriptions: Albuterol HFA [Ventolin HFA 90 mcg/actuation (8 g)] 2 puff IH [id number] PRN #1 inhaler PRN Reason: Wheezing Aspirin [Adult Low Dose Aspirin EC] 81 mg PO DAILY 30 Days #30 tablet. Gabapentin [Neurontin] 300 mg PO DAILY #7 cap Topiramate [Topamax] 100 mg PO HS #30 tab - Follow Up Plan Condition: STABLE Disposition: HOME/ ROUTINE Instructions: Paresthesias (DC), Hand Numbness Additional Instructions: Please follow up with your primary care doctor, Dr. Santoyo, within 3-5 days upon discharge. Please get any refills needed on new medications from your primary care doctor. Please follow up with your neurologist, Dr. Naqvi, within 7 days of discharge. You have been given a prescription for: 1. Gabapentin 300mg at bedtime, this medication can make you drowsy, do not drive or operate heavy machinery while taking this medication. 2. Aspirin 81mg daily Continue all other home medication as prescribed. Recommend to follow up with counselor to help alleviate with stressors at home. If your symptoms return, please go to the nearest emergency department. Referrals: Power Santoyo MD [Family Provider] -
== END 2018-05-05 13:58 | disposition home or self-care (01) ==
LOC: ED 21:35 → ERH 23:25 → 3RSO 05-04 02:12
PROVIDERS: ADMIT Internal Medicine; ATTEND Internal Medicine
DX: G43.909 Migraine, unspecified, not intractable, without status migrainosus (principal); R20.2 Paresthesia of skin; J45.909 Unspecified asthma, uncomplicated; Z90.710 Acquired absence of both cervix and uterus; Z98.891 History of uterine scar from previous surgery
CPT/HCPCS: 36415; 70450; 70544; 70547; 70551; 71045; 72125; 72128; 80053; 80061; 81003; 82607; 82746; 83036; 83735; 84100; 84443; 84484; 85025; 93005; 99284; G0378